=== PATIENT | female | born 1955 | race Caucasian/White ===

== ENCOUNTER 2018-12-16 21:20 | Emergency (ER) | payer OTHER ==
--- NOTE | 2018-12-16 22:57 | EDM.PDOC ---
ED HPI GENERAL MEDICAL PROBLEM - General Chief Complaint: Lower Extremity Injury/Pain Stated Complaint: LEFT FOOT HURTS Time Seen by Provider: 12/16/18 22:50 Source of Information: Reports: Patient History Limitations: Reports: No Limitations - History of Present Illness INITIAL COMMENTS - FREE TEXT/NARRATIVE: tripped on mat in kitchen last ramo heard popping in left foot, pain to left side and bottom of foot, no other injury, did not fall. 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 ED EXAM, GENERAL - Physical Exam Exam: See Below Exam Limited By: No Limitations General Appearance: Alert, Mild Distress Eye Exam: Bilateral Eye: PERRL Ears: Normal External Exam, Normal TMs Nose: Normal Inspection Throat/Mouth: Normal Inspection Head: Atraumatic, Normocephalic Neck: Normal Inspection, Supple, Non-Tender Respiratory/Chest: No Respiratory Distress, Normal Breath Sounds Cardiovascular: Normal Peripheral Pulses, Regular Rate, Rhythm Back Exam: Normal Inspection, Full Range of Motion Extremities: Joint Swelling ( mild swelling left lateral foot light ecchymosis, tender.) Neurological: Alert, Oriented, Normal Cognition Psychiatric: Normal Affect, Normal Mood Skin Exam: Warm, Dry, Intact Course - Vital Signs Last Recorded V/S: Last Vital Signs Temp 98.3 F 12/16/18 21:46 Pulse 89 12/16/18 21:46 Resp 18 12/16/18 21:46 BP 138/86 12/16/18 21:46 Pulse Ox 98 12/16/18 21:46 - Radiology Interpretation Free Text/Narrative:: xray left foot Departure - Departure Time of Disposition: 22:51 Disposition: Home, Self-Care 01 Condition: Good Clinical Impression: Fracture of 5th metatarsal Qualifiers: Encounter type: initial encounter Fracture type: closed Fracture alignment: nondisplaced Laterality: left Qualified Code(s): S92.355A - Nondisplaced fracture of fifth metatarsal bone, left foot, initial encounter for closed fracture - Discharge Information *PRESCRIPTION DRUG MONITORING PROGRAM REVIEWED*: Not Applicable *COPY OF PRESCRIPTION DRUG MONITORING REPORT IN PATIENT MELL: Not Applicable Instructions: Metatarsal Fracture Forms: ED Department Discharge Additional Instructions: weight bearing with boot walker or cane if needed ice and elevate foot 48 hours tylenol or ibuprofen for discomfort follow up with ortho next week [phone]
== END 2018-12-16 23:00 | disposition home or self-care (01) ==
LOC: DL.ED 21:20
DX: S92.355A Nondisplaced fracture of fifth metatarsal bone, left foot, initial encounter for closed fracture (principal); X58.XXXA Exposure to other specified factors, initial encounter
CPT/HCPCS: 73630-LT; 99283-25

== ENCOUNTER 2020-03-17 05:49 | Day surgery (SDC) | payer OTHER ==
[~2020-03-17 05:49] MED LIST: Dextrose 5%-0.45% NaCl 1,000 ML IV SCH; Sodium Chloride 0.9% 10 ML Syringe FLUSH PRN
[2020-03-17] MEDS ORDERED: Midazolam 1 MG/ML 2 ML SDV IV ONE ×3 (05:50→07:09)
[2020-03-17] MEDS ORDERED: fentaNYL 100 MCG/2 ML SDV IV ONE ×3 (05:50→07:08)
[2020-03-17] MEDS ORDERED: fentaNYL 100 MCG/2 ML SDV ONE (06:20)
[2020-03-17] MEDS ORDERED: Midazolam 1 MG/ML 2 ML SDV ONE (06:20)
--- NOTE | 2020-03-17 13:48 | OR ---
DATE: 03/17/2020 PROCEDURE: Esophagogastroduodenoscopy and narrow band imaging. INSTRUMENT USED: [id number]-HQ190 Olympus video panendoscope. PREMEDICATIONS: No oral or topical anesthesia used. Fentanyl 100 mcg intravenous, Versed 2 mg intravenous. Nasal O2 cannula. The procedure was done under pulse oximetry, BP recording, and fire alarm dispatcher. INDICATION: The patient with persistent iron deficiency anemia in spite of oral therapy and long-term PPI. Esophagogastroduodenoscopy was performed for detection of any active erosive lesions, malignancy also under consideration, endoscopic hemostasis therapy if needed. DESCRIPTION OF PROCEDURE: The scope was passed with ease. Adequate visualization of the esophagus was made from proximal to distal areas. No upper esophageal lesions identified. No distal esophageal stricture. No uphill or downhill esophageal varices. No Bouchra-Aponte tear. No evidence of erosive esophagitis by Woodward criteria. No esophageal polyp or tumor mass identified. Large hiatal hernia was noted. No proximal gastric varices noted. Gastric fundus examination by retroflexion showed no polypoid lesions. 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 No gastric ulcer, malignant mass, or vascular ectasia identified. Duodenal bulb showed no ulcer. Visualized second part of the duodenum was unremarkable. No bleeding was noted from any of the visualized areas at the completion of examination. Photographs were taken from the duodenal bulb, gastric antrum, fundus, and distal esophagus. NBI views were obtained of Osmani erosions. No bleeding was noted from any of the visualized areas at the completion of examination. IMPRESSION: 1. Large hiatal hernia. 2. Osmani erosions. The patient tolerated the procedure well. [facility] /[id number]
== END 2020-03-17 09:30 | disposition home or self-care (01) ==
LOC: DL.ENDO 05:49
PROVIDERS: ATTEND Internal Medicine Gastroenterology
DX: K25.9 Gastric ulcer, unspecified as acute or chronic, without hemorrhage or perforation (principal); K44.9 Diaphragmatic hernia without obstruction or gangrene; D50.9 Iron deficiency anemia, unspecified; E66.09 Other obesity due to excess calories; J45.909 Unspecified asthma, uncomplicated; F41.1 Generalized anxiety disorder; Z68.41 Body mass index [BMI] 40.0-44.9, adult; Z79.899 Other long term (current) drug therapy
CPT/HCPCS: 43235; J2250; J3010; J7042

== ENCOUNTER 2020-04-03 06:17 | Day surgery (SDC) | payer OTHER ==
[~2020-04-03 06:17] MED LIST changes: -Dextrose 5%-0.45% NaCl 1,000 ML IV SCH; +Midazolam 1 MG/ML 2 ML SDV ONE; +fentaNYL 100 MCG/2 ML SDV ONE
[2020-04-03] MEDS ORDERED: fentaNYL 100 MCG/2 ML SDV IV ONE ×4 (06:18→08:00)
[2020-04-03] MEDS ORDERED: Midazolam 1 MG/ML 2 ML SDV IV ONE ×7 (06:18→07:58)
[2020-04-03] MEDS ORDERED: Dextrose 5%-0.45% NaCl 1,000 ML IV SCH (07:00)
--- NOTE | 2020-04-03 11:02 | OR ---
DATE: 04/03/2020 PROCEDURE: Total colonoscopy. INSTRUMENT USED: PCF-H190DL Olympus video colonoscope. PREMEDICATIONS: Fentanyl 125 mcg intravenous, Versed 4 mg intravenous. Nasal O2 cannula. The procedure was done under pulse oximetry, BP recording, and diagnostic cardiac sonographer. INDICATION: The patient with iron-deficiency anemia. Colonoscopic examination is done for detection of any polypoid lesions and removal, endoscopic hemostasis therapy if needed. DESCRIPTION OF PROCEDURE: Initial rectal exam was unremarkable. Rigid anoscopy was normal. The colonoscope was passed with ease. A few scattered diverticula were noted in the distal left colon. The scope was passed with ease to the ileocecal area. Photographs were taken of the normal-appearing cecum identified by landmarks of appendiceal orifice and double-bulged ileocecal folds. No bleeding was noted from any of the visualized areas at the commencement of the examination. The bowel preparation was found to be adequate, Thrall Scale 2 in all the regions, total score 6. No stricture, no vascular ectasia, no large isolated ulcerations seen. No evidence of diffuse inflammatory bowel disease in the form of friability, contact bleeding, or ulcerations. No polyp or tumor mass identified. Probing the proximal sides of folds and flexures using adequate distention and clearing up the stool material, withdrawal of the scope was made. Cecum to rectum time over 6 minutes. No bleeding was noted from any of the visualized areas at the completion of examination. IMPRESSION: Diverticulosis. The patient tolerated the procedure well. [facility] /[id number]
== END 2020-04-03 10:12 | disposition home or self-care (01) ==
LOC: DL.ENDO 06:17
PROVIDERS: ATTEND Internal Medicine Gastroenterology
DX: D50.9 Iron deficiency anemia, unspecified (principal); K57.30 Diverticulosis of large intestine without perforation or abscess without bleeding; E66.09 Other obesity due to excess calories; K44.9 Diaphragmatic hernia without obstruction or gangrene; K25.9 Gastric ulcer, unspecified as acute or chronic, without hemorrhage or perforation; J45.909 Unspecified asthma, uncomplicated; F41.1 Generalized anxiety disorder; Z68.36 Body mass index [BMI] 36.0-36.9, adult
CPT/HCPCS: G0121; J2250; J3010; J7042